=== PATIENT | male | born 1975 | race Caucasian/White ===

== ENCOUNTER 2021-03-29 17:45 | Emergency (ER) | payer OTHER ==
[~2021-03-29 17:45] MED LIST: IBUPROFEN800 MG PO; ROBAXIN750 MG PO
== END 2021-03-29 18:45 | disposition left against medical advice (07) ==
LOC: FER 17:45
DX: R20.0 Anesthesia of skin (principal); Z53.8 Procedure and treatment not carried out for other reasons
CPT/HCPCS: 93005